=== PATIENT | female | born 1990 | race Caucasian/White ===

== ENCOUNTER 2018-05-20 18:27 | Emergency (ER) | payer MEDICAID ==
[~2018-05-20] VITALS: Ht 162.6 cm; Wt 58.1 kg
[2018-05-20 18:37] VITALS: BP 150/95
== END 2018-05-20 22:24 | disposition left against medical advice (07) ==
LOC: ER 18:27
DX: S61.012A Laceration without foreign body of left thumb without damage to nail, initial encounter (principal); Z53.21 Procedure and treatment not carried out due to patient leaving prior to being seen by health care provider; W26.0XXA Contact with knife, initial encounter; Y93.89 Activity, other specified; Y92.89 Other specified places as the place of occurrence of the external cause; Y99.8 Other external cause status

== ENCOUNTER 2019-03-05 18:03 | Emergency (ER) | payer MEDICAID ==
[~2019-03-05] VITALS: Ht 162.6 cm; Wt 63.5 kg
[2019-03-05 18:36] LABS: Basophils # (auto) 0 uL; Basophils % (auto) 0.4 % (0.0-2.0); Eosinophils # (auto) 0.1 uL; Eosinophils % (auto) 0.6 % (0.0-7.0); Hematocrit 38.1 % (36.0-46.0); Hemoglobin 13.2 g/dL (12.2-16.2); Lymphocytes # (auto) 1.4 uL; Lymphocytes % (auto) 14.5 % (10.0-50.0); Mean Corpuscular Hgb Conc. 34.7 g/dL (32.0-36.0); Mean Corpuscular Volume 98.1 fL (80.0-100.0); Monocytes # (auto) 0.6 uL; Neutrophils # (auto) 7.6 uL; Neutrophils % (auto) 78.5 % (37.0-80.0); Nucleated Red Blood Cells % 0.2 %; Platelet Count (auto) 208 10^3/uL (140-450); Red Blood Cells 3.88 10^6/uL (4.0-5.20); Red Cell Distribution Width 14.1 % (11.8-14.3); White Blood Cell 9.7 10^3/uL (4.4-10.8)
[2019-03-05 18:56] LABS: Albumin 3.7 g/dL (3.4-5.0); BUN/Creatinine Ratio 11.5; Calcium 8.7 mg/dL (8.5-10.1); Potassium 3.7 mmol/L (3.5-5.1)
[2019-03-05 18:59] LABS: Bilirubin, Total 0.9 mg/dL (0.2-1.0); Total Protein 8.2 g/dL (6.4-8.2)
[2019-03-05 19:36] LABS: Urine Amorphous Crystal MOD /hpf (None Seen); Urine Bacteria NONE SEEN /hpf (None Seen); Urine Blood Negative /uL (Negative); Urine Mucus FEW (None Seen); Urine Specific Gravity 1.025 (1.001-1.035); Urine WBC 44 /hpf (0 - 5)
[2019-03-05] MEDS ORDERED: ONDANSETRON HCL 4 MG/2 ML VIAL IV ONE (21:45)
[2019-03-05] MEDS ORDERED: MORPHINE SULFATE 4 MG/ML SYR/VIAL IV ONE ×2 (21:45→23:45)
[2019-03-05] MEDS ORDERED: SODIUM CHLORIDE 0.9% 1,000 ML IV ONE (22:00)
[2019-03-05] MEDS ORDERED: IOHEXOL 300 MG/ML 100ML BOTTLE IJ ONE (22:59)
[2019-03-06] MEDS ORDERED: THIAMINE INJ 100 MG in SODIUM CHLORIDE 0.9% 1,000 ML IV ONE (00:45)
[2019-03-06] MEDS ORDERED: THIAMINE 100mg/ml INJ (200mg/2ml VIAL) ONE (01:04)
[2019-03-06 01:13] LABS: Lactic Acid w/Reflex 2.6 mmol/L (0.4-2.0)
[2019-03-06 02:00] VITALS: BP 140/91
[2019-03-06] MEDS ORDERED: HYDROcodone-ACET 5/325MG TAB PO ONE (02:45)
== END 2019-03-06 02:58 | disposition home or self-care (01) ==
LOC: ER 18:06
DX: O03.9 Complete or unspecified spontaneous abortion without complication (principal); K86.1 Other chronic pancreatitis; J45.909 Unspecified asthma, uncomplicated
CPT/HCPCS: 36415; 74177; 76801; 80053; 80320; 81001; 82150; 83605; 83690; 84702; 85025; 87040; 96365; 96366; 96375; 96376; 99284; J2270; J2405; J3411; J7030; Q9967